=== PATIENT | female | born 1975 | race Caucasian/White ===

== ENCOUNTER 2021-08-25 16:15 | Inpatient (IN) | payer MEDICAID, SELFPAY ==
[2021-08-25 16:10] VITALS: BP 103/68; PULSE 64; RESP 16; TEMP 36.7; O2SAT 94
[2021-08-25 16:26] VITALS: BP 99/66; PULSE 65; RESP 16; TEMP 36.8; O2SAT 98
--- NOTE | 2021-08-25 16:42 | PM.HP ---
Providers/Chief Complaint Admitting Physician: Boo Seay MD Chief Complaint: Siezures History of Present Illness Kirsten Meléndez is a 46 year old female with PMH of Marquis's paralysis, HTN, Seizure, disorder was accepted from [facility] as a direct admit where she presented with seizure.When I Interacted with the patient she was complaining of not felling well since tuesday, and she also told that she has not taken her Depakote since tuesday as she ran out of supply, she has experienced few episodes of seizure after tuesday and has been seen in the ER at [facility] and was discharged from there after initial management.Currently she is denying any chest pain, SOB,nausea, vomiting. Patient was loaded with Dilantion in the ER of [facility]. Pertinent Labs WBC : 4.8 H&H : PLT : 142 Na: 139 K : 3.7 BUN/SCR : 9/0.7 Review of Systems General: Reports: 10 or more systems reviewed and unremarkable except in HPI and below Const: Denies: fever(s), chills, body aches, change in appetite or diaphoresis Card: Denies: palpitations, edema, swelling of feet/ankles, dyspnea on exertion, orthopnea or leg pain with exertion Resp: Denies: dyspnea, productive cough, wheezing or pain on inspiration GI: Denies: abdominal pain, nausea, vomiting, diarrhea or constipation : Denies: flank pain Musc: Denies: back pain, extremity pain or extremity swelling Neuro: Denies: headache(s), difficulty walking or confusion Medications/Allergies Home Medications Medication Instructions Recorded Confirmed Last Taken Type amlodipine 5 mg tablet 5 mg PO DAILY 08/25/21 08/25/21 Unknown History buspirone 15 mg tablet 15 mg PO BID 08/25/21 08/25/21 Unknown History divalproex 250 mg tablet,delayed 250 mg PO DAILY 08/25/21 08/25/21 Unknown History release doxepin 50 mg capsule 50 mg PO PRN PRN MDD 100 08/25/21 08/25/21 08/24/21 History hydroxyzine pamoate 25 mg capsule 25 mg PO TID PRN 08/25/21 08/25/21 Unknown History lisinopril 10 mg tablet 10 mg PO DAILY 08/25/21 08/25/21 Unknown History topiramate 100 mg tablet (Topamax) 100 mg PO DAILY 08/25/21 08/25/21 08/24/21 History Allergies Allergy/AdvReac Type Severity Reaction Status Date / Time Penicillins Allergy Unknown ALGY-Anaphy Verified 08/25/21 18:03 laxis Vitals/I&O/Wt Last Vital Signs Temp 98.2 F 08/25/21 16:26 Pulse 65 08/25/21 16:26 Resp 16 08/25/21 16:26 BP 99/66 08/25/21 16:26 Pulse Ox 98 08/25/21 16:26 Physical Exam Const: COMMON NORMALS: patient oriented x3 HENMT: COMMON NORMALS: normocephalic and atraumatic HEAD & SCALP: normocephalic and atraumatic EXTERNAL EAR: Yes external ears normal Resp: COMMON NORMALS: clear to auscultation bilaterally EFFORT & INSPECTION: Yes symmetric chest movement AUSCULTATION: clear to auscultation bilaterally Cardio: COMMON NORMALS: regular rate, regular rhythm, S1 normal heart sound present, S2 normal heart sound present, No gallops present (Cardio), No murmurs present (Cardio), No rub (Cardio) and Peripheral pulses 2+ throughout RATE: regular rate RHYTHM: regular rhythm HEART SOUNDS: S1 normal heart sound present and S2 normal heart sound present PERIPHERAL PULSES: Peripheral pulses 2+ throughout GI: COMMON NORMALS: Normal to inspection, nondistended, normoactive bowel sounds present, Soft to palpation, non-tender, No hepatosplenomegaly present and no masses AUSCULTATION: Yes normoactive bowel sounds PALPATION: Yes Soft to palpation and Yes No hepatosplenomegaly present RECTAL EXAM: deferred Extremity: COMMON NORMALS: no clubbing, cyanosis or edema and no pedal edema Neuro: COMMON NORMALS: patient oriented x3 Data : 08/26/21 05:45 08/26/21 05:45 A&P Assessment and plan (1) Seizure: Status: Acute Plan 46 year old female with PMH of Marquis's paralysis, HTN, Seizure, disorder was accepted from [facility] as a direct admit where she presented with seizure.When I Interacted with the patient she was complaining of not felling well since tuesday, and she also told that she has not taken her Depakote since tuesday as she ran out of supply, she has experienced few episodes of seizure after Tuesday. Assessment: Seizure HTN Plan : Follow Serum Depakote level Will give her 500 PO OF Depakote one time dose now and continue with her home dose of depakote as well as Topomax Continue NS @ 125CC/HR Monitor B/P , HOLD Anti Nneka medications for now. Code Status :Full code DVT PPX: On Lovenox Attestations Medical Necessity Statement*: Patient needs to be in hospital for the management of seizure disorder.Anticipated LOS Greater then 2 midnights. Time Spent in Patient Care: Greater than 35 minutes (>than 50% of time spent in counselling and/or direct pt care on unit). Coding Level of Care Code Acute [employer] In[employer]ter for g Fwd Exam Detailed Diagnoses Seizure R56.9
[2021-08-25 18:05] VITALS: BMI 28.3
[2021-08-25] MEDS: enoxaparin 40 mg/0.4 mL Syringe SUBCUT (19:42)
[2021-08-25] MEDS: divalproex ER 500 mg Tablet (24H) PO (19:42)
[2021-08-25] MEDS: sodium chloride 0.9% 1,000 ML 125 ML IV ×2 (19:43→19:45)
[2021-08-25 19:52] VITALS: BP 100/68; PULSE 73; RESP 18; TEMP 36.3; O2SAT 98
[2021-08-25 20:00] VITALS: BP 100/68; PULSE 73; RESP 18; TEMP 36.3
[2021-08-25] MEDS: BuSPIRONE 10 mg Tablet 15 MG PO (20:28)
[2021-08-25] MEDS: doxepin 50 mg Capsule PO (20:31)
[2021-08-25] MEDS: topiramate 100 mg Tablet PO (20:31)
[2021-08-26] VITALS: BP 100/67; BP 100/68; PULSE 72; PULSE 73; RESP 18; TEMP 36.3; TEMP 36.8; O2SAT 99
[2021-08-26 04:00] VITALS: BP 100/67; BP 134/98; PULSE 68; PULSE 72; RESP 18; TEMP 36.8; O2SAT 98
[2021-08-26] MEDS: acetaminophen 325 mg Tablet 650 MG PO (05:29)
[2021-08-26 05:54] LABS: Basophils % 0.4 %; Eosinophils # 0.1 10^3/uL (0.0-0.8); Eosinophils % 2.7 %; Hematocrit 36.5 % (37.0-47.0); Lymphocytes # 2.1 10^3/uL (0.8-4.8); Lymphocytes % 43.8 %; Mean Corpuscular HGB Conc 32.9 g/dL (30.0-36.0); Mean Corpuscular Hemoglobin 31.7 pg (28.0-34.0); Mean Corpuscular Volume 96.3 fl (81-99); Mean Platelet Volume 11.8 fL (7.4-10.4); Monocytes # 0.3 10^3/uL (0.2-0.9); Monocytes % 6.8 %; Neutrophils # 2.23 10^3/uL (1.8-7.7); Neutrophils % 46.1 %; Nucleated Red Blood Cells % 0 %; Platelet Count 142 10^3/cmm (130-400); Red Blood Count 3.79 10^6/uL (4.1-5.3); White Blood Count 4.8 10^3/uL (4.0-10.0)
[2021-08-26 06:20] LABS: Alanine Aminotransferase 10 U/L (0-33); Albumin Level 3.3 g/dL (3.5-5.2); Alkaline Phosphatase 90 IU/L (35-105); Aspartate Amino Transferase 15 U/L (0-32); Blood Urea Nitrogen 9 mg/dL (6-20); Calcium 8.2 mg/dL (8.5-10.5); Carbon Dioxide 20 mmol/L (22-29); Chloride 109 mmol/L (98-107); Globulin 2.7 g/dL (1.3-4.6); Glomerular Filtration Rate 90.1 mL/min (90-130); Glucose 81 mg/dL (65-115); Magnesium 2.1 mg/dL (1.7-2.3); Osmolality Calculated 286 mOsm/kg (285-295); Sodium 139 mmol/L (136-145); Thyroid Stimulating Hormone 1.78 uIU/mL (0.27-4.20); Total Bilirubin 0.3 mg/dL (0.15-1.2)
[2021-08-26 06:23] LABS: Anion Gap 13.7 (5-19); Potassium 3.7 mmol/L (3.5-5.1)
[2021-08-26 07:36] VITALS: BP 115/76; PULSE 85; RESP 16; TEMP 36.7; O2SAT 97
[2021-08-26] MEDS: BuSPIRONE 10 mg Tablet 15 MG PO ×2 (08:21→17:45)
[2021-08-26] MEDS: topiramate 100 mg Tablet PO (08:21)
[2021-08-26] MEDS: divalproex DR 250 mg Tablet PO (08:21)
[2021-08-26] MEDS: divalproex ER 500 mg Tablet (24H) PO (08:22)
--- NOTE | 2021-08-26 09:14 | PM.DCS ---
Discharge Providers Date of Admission: 08/25/21 16:15 Date of Discharge: August 26, 2021 Attending Provider at Admission: Boo Seay MD Attending Provider at Discharge: Boo Seay MD Diagnoses at Discharge Discharge Diagnosis (1) Seizure: Status: Acute Reason for Visit Reason for Visit: [facility] Course Hospital Course HPI Kirsten Meléndez is a 46 year old female with PMH of?Marquis's paralysis, HTN,?Seizure,? disorder was accepted from [facility] as a direct admit where she presented with seizure.When I Interacted with the patient she was complaining of not felling well since tuesday, and she also told that she has not taken her Depakote since tuesday as she ran out of supply, she has experienced few episodes of seizure after tuesday and has been seen in the ER at [place] and was discharged from there after initial management.Currently she is denying any chest pain, SOB,nausea, vomiting. Patient was loaded with Dilantion in the ER of [facility]. Pertinent Labs WBC : 4.8 H&H : /36? PLT : 142 Na: 139? K : 3.7 BUN/SCR : 9/0.7 Hospital course: Admitted for the management of breakthrough seizure likely secondary to missed medications, Serum valproic acid level was slightly low: At 32. She was given additional 1000 mg of Depakote oral and was continued on home Depakote regimen.Overall patient had no seizure during the hospital stay. She has also been asked to follow neurology as an outpatient, appointment for which has been made. She has responded well to above medical management and is being discharged in stable condition to home. Physical Exam Const: COMMON NORMALS: patient oriented x3 HENMT: COMMON NORMALS: normocephalic, atraumatic and external ears normal HEAD & SCALP: normocephalic and atraumatic EXTERNAL EAR: Yes external ears normal Resp: COMMON NORMALS: clear to auscultation bilaterally EFFORT & INSPECTION: Yes symmetric chest movement AUSCULTATION: clear to auscultation bilaterally Cardio: COMMON NORMALS: regular rate, regular rhythm, S1 normal heart sound present, S2 normal heart sound present, No gallops present (Cardio), No murmurs present (Cardio), No rub (Cardio) and Peripheral pulses 2+ throughout RATE: regular rate RHYTHM: regular rhythm HEART SOUNDS: S1 normal heart sound present and S2 normal heart sound present PERIPHERAL PULSES: Peripheral pulses 2+ throughout GI: COMMON NORMALS: Normal to inspection, nondistended, normoactive bowel sounds present, Soft to palpation, non-tender, No hepatosplenomegaly present and no masses AUSCULTATION: Yes normoactive bowel sounds PALPATION: Yes Soft to palpation and Yes No hepatosplenomegaly present RECTAL EXAM: deferred Extremity: COMMON NORMALS: no clubbing, cyanosis or edema and no pedal edema Neuro: COMMON NORMALS: patient oriented x3 Discharge Data Studies Completed and Pending Pending at discharge Category Date Time Status Complete Blood Count w/Auto AM LABS Lab 08/27/21 04:00 Ordered Complete Blood Count w/Auto AM LABS Lab 08/28/21 04:00 Ordered Comprehensive Metabolic Panel AM LABS Lab 08/27/21 04:00 Ordered Comprehensive Metabolic Panel AM LABS Lab 08/28/21 04:00 Ordered Laboratory Results WBC 4.8 10^3/uL (4.0-10.0) 08/26/21 05:45 RBC 3.79 10^6/uL (4.1-5.3) L 08/26/21 05:45 Hgb 12.0 g/dL (11.5-15.3) 08/26/21 05:45 Hct 36.5 % (37.0-47.0) L 08/26/21 05:45 MCV 96.3 fl (81-99) 08/26/21 05:45 MCH 31.7 pg (28.0-34.0) 08/26/21 05:45 MCHC 32.9 g/dL (30.0-36.0) 08/26/21 05:45 RDW 13.0 % (12.1-15.1) 08/26/21 05:45 Plt Count 142 10^3/cmm (130-400) 08/26/21 05:45 MPV 11.8 fL (7.4-10.4) H 08/26/21 05:45 Neut % (Auto) 46.1 % 08/26/21 05:45 Lymph % (Auto) 43.8 % 08/26/21 05:45 [place] % (Auto) 6.8 % 08/26/21 05:45 Eos % (Auto) 2.7 % 08/26/21 05:45 Baso % (Auto) 0.4 % 08/26/21 05:45 Neut # (Auto) 2.23 10^3/uL (1.8-7.7) 08/26/21 05:45 Lymph # (Auto) 2.1 10^3/uL (0.8-4.8) 08/26/21 05:45 [place] # (Auto) 0.3 10^3/uL (0.2-0.9) 08/26/21 05:45 Eos # (Auto) 0.1 10^3/uL (0.0-0.8) 08/26/21 05:45 Baso # (Auto) 0.0 10^3/uL (0.0-0.1) 08/26/21 05:45 Nucleated RBC % (auto) 0 % 08/26/21 05:45 Nucleated RBCs # 0.0 /100WBC 08/26/21 05:45 Sodium 139 mmol/L (136-145) 08/26/21 05:45 Potassium 3.7 mmol/L (3.5-5.1) 08/26/21 05:45 Chloride 109 mmol/L (98-107) H 08/26/21 05:45 Carbon Dioxide 20 mmol/L (22-29) L 08/26/21 05:45 Anion Gap 13.7 (5-19) 08/26/21 05:45 BUN 9 mg/dL (6-20) 08/26/21 05:45 Creatinine 0.7 mg/dL (0.5-0.9) 08/26/21 05:45 GFR Calculation 90.1 mL/min (90-130) 08/26/21 05:45 Glucose 81 mg/dL (65-115) 08/26/21 05:45 Calculated Osmolality 286 mOsm/kg (285-295) 08/26/21 05:45 Calcium 8.2 mg/dL (8.5-10.5) L 08/26/21 05:45 Magnesium 2.1 mg/dL (1.7-2.3) 08/26/21 05:45 Total Bilirubin 0.3 mg/dL (0.15-1.2) 08/26/21 05:45 AST 15 U/L (0-32) 08/26/21 05:45 ALT 10 U/L (0-33) 08/26/21 05:45 Alkaline Phosphatase 90 IU/L (35-105) 08/26/21 05:45 Total Protein 6.0 g/dL (6.6-8.7) L 08/26/21 05:45 Albumin 3.3 g/dL (3.5-5.2) L 08/26/21 05:45 Globulin 2.7 g/dL (1.3-4.6) 08/26/21 05:45 TSH 1.78 uIU/mL (0.27-4.20) 08/26/21 05:45 Valproic Acid 32.0 ug/mL (50-100) L 08/26/21 05:45 Vitals Last Vital Signs Temp 98.0 F 08/26/21 07:36 Pulse 85 08/26/21 07:36 Resp 16 08/26/21 07:36 BP 115/76 08/26/21 07:36 Pulse Ox 97 08/26/21 07:36 Discharge Plan Discharge Patient Disposition: Home Condition: Stable Prescriptions: Continued doxepin 50 mg Capsule 50 mg PO PRN MDD 100 PRN (Reason: Insomnia) 0RF Topamax 100 mg Tablet 100 mg PO DAILY 0RF amlodipine 5 mg Tablet 5 mg PO DAILY 0RF hydroxyzine pamoate 25 mg Capsule 25 mg PO TID PRN (Reason: Anxiety) 0RF buspirone 15 mg Tablet 15 mg PO BID 0RF divalproex 250 mg Tablet,Delayed Release (Dr/Ec) 250 mg PO DAILY 30 Days Qty: 30 3RF Held lisinopril 10 mg Tablet 10 mg PO DAILY 0RF Hold Instructions: Resume on 08/30/21. Discharge Orders: Discharge Order (Routine); Ordered 08/26/21 Ordered By: Boo Seay Referrals: Marquita Rao MD [Physician] - 09/09/21 8:45 am Discharge Diet: Regular Discharge Activity: Resume usual activity Patient Instructions: Opioid Safety, Seizures Discharge Attestations Time Spent in Discharge Care*: less than 30 min Specific Discharge Activities: educating patient, educating and/or supporting family/caregiver, discussing with pcp/other providers, discussing with director case management/social workers/dc planners, documenting/other paperwork and evaluating patient/reviewing data Quality Metrics Clinical Quality Measures [ No reported AMI, CVA or VTE this stay] Coding Level of Care Code Acute Chg FW DC note Diagnoses Seizure R56.9
[2021-08-26 11:56] VITALS: BP 111/72; PULSE 85; RESP 17; TEMP 36.8; O2SAT 97
--- NOTE | 2021-08-26 15:47 | PC.SOCIAL ---
MARCO ANTONIO called and got [employer] quote as patient states that her boyfriend can't come get her until later this evening. Ready provided the quote of $330.
[2021-08-26 16:00] VITALS: BP 118/79; PULSE 75; RESP 16; TEMP 36.7; O2SAT 97
--- NOTE | 2021-08-26 18:36 | PC.NURSE ---
dc'd piv. rx given to patient. left [place] to private [place] with her significant other. no further questions or concerns
== END 2021-08-26 18:00 | disposition home or self-care (01) | DRG 93 ==
PROVIDERS: Admitting Provider Internal Medicine; Visit Provider Internal Medicine
DX: G83.84 Todd's paralysis (postepileptic) (principal); I10 Essential (primary) hypertension; T42.6X6A Underdosing of other antiepileptic and sedative-hypnotic drugs, initial encounter; Z91.128 Patient's intentional underdosing of medication regimen for other reason
CPT/HCPCS: 36415; 80053; 80164; 83735; 84443; 85025; 96372; J1650; J7030